=== PATIENT | female | born 1995 | race Caucasian/White ===

== ENCOUNTER → 2017-12-27 | Outpatient (CLI) | payer OTHER ==
--- NOTE | 2017-12-27 14:41 | DIAGNOSTIC IMAGING REPORT ---
PELVIC COMPLETE NON OB HISTORY: 22 years-old Female FEMALE PELVIC PAIN acute generalized pelvic pain COMPARISON: None available TECHNIQUE: Multiple real-time sonographic images of the deep pelvic structures were obtained transabdominally and transvaginally assessing grayscale appearance, color and spectral flow FINDINGS: TRANSABDOMINAL: Anteflexed uterus measures 6.2 x 2.8 x 3.4 cm. Endometrium measures 0.3 cm. TRANSVAGINAL: Anteflexed uterus measures 6.1 x 3.1 x 2.3 cm. Endometrium measures 7 mm. No myometrial mass lesions are identified. Right ovary measures 1.6 x 2.1 x 1.8 cm and demonstrates arterial inflow. Follicles within the right ovary are noted. The left ovary measures 2.3 x 2.9 x 2.5 cm and also demonstrates arterial inflow with follicles. No significant free pelvic fluid. IMPRESSION: 1. Unremarkable sonographic appearance of the uterus and endometrium. 2. Follicles of the bilateral ovaries without evidence of ovarian torsion. The above report was generated using voice recognition software. It may contain grammatical, syntax or spelling errors. Electronically signed by: Juan F Reddy M.D. 12/27/2017 2:40 PM Dictated Date/Time: 12/27/2017 2:36 PM
== END | disposition home or self-care (01) ==
LOC: C.ULTR 13:21
PROVIDERS: ATTEND Nurse Practitioner Family
DX: R10.2 Pelvic and perineal pain (principal)